=== PATIENT | female | born 1960 | race Caucasian/White ===

== ENCOUNTER 2018-03-13 15:16 | Emergency (ER) | payer BC ==
[2018-03-13] MEDS ORDERED: NS 0.9% 1000 ML* 1,000 ML IV ONE (15:31)
[2018-03-13] MEDS ORDERED: Ondansetron INJ* 2 MG/ML VIAL IV ONE (15:31)
[2018-03-13 15:47] VITALS: BP 136/66
--- NOTE | 2018-03-13 16:25 | UC ---
Abdominal Pain Female HPI - HPI Summary HPI Summary: Pt presents with c/o sudden onset of epigastric pain that began ~ 2 hours ago. Pt reports that she gave blood this morning at 7 am, did not eat breakfast, drank water after blood donation and drank ~ 16 oz PO water. Pt then ate 3-4 bites of grilled chicken and felt nauseous, had sudden onset of epigastric pain that was "colicky". Pt denies chest pain or SOB. Pt then felt sudden onset of nausea and severe epigastric pain at time of arrival to clinic. - History of Current Complaint Stated Complaint: ABDOMINAL PAIN Hx Obtained From: Patient ?: No Onset/Duration: Sudden Onset, Lasting Hours, Still Present Timing: Constant Severity Initially: Moderate Severity Currently: Severe Pain Intensity: 0 Location: Epigastric Radiates: No Character: Colicy, Cramping, Sharp Aggravating Factor(s): Food, Movement, Deep Breaths Alleviating Factor(s): Nothing Associated Signs and Symptoms: Positive: Decreased Appetite, Nausea, Vomiting - Risk Factors Ectopic Risk Factor: Negative Ovarian Torsion Risk Factor: Negative Allergies/Adverse Reactions: Allergies Allergy/AdvReac Type Severity Reaction Status Date / Time lisinopril Allergy Rash Verified 03/13/18 15:42 Home Medications: Home Medications Bupropion XL* [Wellbutrin XL *] 450 mg PO DAILY 03/13/18 [History Confirmed 05/19] Cholecalciferol TAB* [Vitamin D TAB*] 1,000 unit PO DAILY 03/13/18 [History Confirmed 03/13/18] Hydrochlorothiazide TAB* [Hydrodiuril TAB*] 12.5 mg PO DAILY 03/13/18 [History Confirmed 03/13/18] Losartan Potassium 100 mg PO DAILY 03/13/18 [History Confirmed 03/13/18] Melatonin 9 mg PO BEDTIME 03/13/18 [History Confirmed 03/13/18] Simvastatin 20 mg PO DAILY 03/13/18 [History Confirmed 03/13/18] Ubidecarenone [Coq-10] 100 mg PO DAILY 03/13/18 [History Confirmed 03/13/18] PMH/Surg Hx/FS Hx/Imm Hx Previously Healthy: Yes Endocrine History: Dyslipidemia Cardiovascular History: Hypertension GI/ History: Gall Bladder Disease - pt thinks she has gallstones, Kidney Stones - hx of - Surgical History Surgical History: Yes Surgery Procedure, Year, and Place: uretal stent. D&C - Family History Known Family History: Positive: Cardiac Disease - Social History Occupation: Employed Full-time Lives: With Family Alcohol Use: Rare Substance Use Type: None Smoking Status (MU): Former Smoker Have You Smoked in the Last Year: No - Immunization History Vaccination Up to Date: Yes Review of Systems Constitutional: Chills Skin: Negative Eyes: Negative ENT: Negative Respiratory: Negative Cardiovascular: Negative Gastrointestinal: Abdominal Pain, Vomiting, Nausea Genitourinary: Negative Motor: Negative Neurovascular: Negative Musculoskeletal: Negative Neurological: Negative Psychological: Negative Is Patient Immunocompromised?: No All Other Systems Reviewed And Are Negative: Yes Physical Exam Triage Information Reviewed: Yes Appearance: Ill-Appearing, Pain Distress Vital Signs: Initial Vital Signs Temp 97.9 F 03/13/18 15:39 Pulse 93 03/13/18 15:39 Resp 17 03/13/18 15:39 BP 136/66 03/13/18 15:39 Pulse Ox 99 03/13/18 15:39 Vital Signs Reviewed: Yes Eye Exam: Normal ENT Exam: Normal Dental Exam: Normal Neck exam: Normal Respiratory Exam: Normal Cardiovascular Exam: Normal Abdomen Description: Positive: Other: - epigastric pain Bowel Sounds: Positive: Present Musculoskeletal Exam: Normal Neurological Exam: Normal Psychological Exam: Normal Skin Exam: Normal Abd Pain Female Course/Dx - Course Course Of Treatment: I discussed with the pt following up with PCP as soon as possible I disucssed with pt doing blood work and pt refused labs. I also discussed with pt doing CT scan and pt refused. I discussed with the pt the need to follow up with pCP an dif symptoms worsen or return to seek care at the closest ER. Pt verbalized understanding and agreed to plan of care. - Differential Dx/Diagnosis Differential Diagnosis: ACS, Gall Bladder Disease, Irritable Bowel Syndrome, Pancreatitis Provider Diagnoses: epigastric pain. Discharge - Sign-Out/Discharge Documenting (check all that apply): Patient Departure All imaging exams completed and their final reports reviewed: No Studies - Discharge Plan Condition: Stable Disposition: HOME Prescriptions: Ondansetron HCl [Zofran] 8 mg PO Q8H PRN #15 tablet PRN Reason: Nausea Patient Education Materials: Epigastric Pain (ED) Referrals: Christiane Estrada MD [Primary Care Provider] - As Soon As Possible Additional Instructions: Please follow up with your PCP as soon as possible. IF symptoms return or worsen please seek care at the closest emergency room. - Billing Disposition and Condition Condition: STABLE Disposition: Home
== END 2018-03-13 16:34 | disposition home or self-care (01) ==
LOC: UCCORT 15:16
DX: R10.13 Epigastric pain (principal); Z88.8 Allergy status to other drugs, medicaments and biological substances; Z87.891 Personal history of nicotine dependence; I10 Essential (primary) hypertension; E78.5 Hyperlipidemia, unspecified
CPT/HCPCS: 93005; 96360; 96374; 99202; G0463; J2405